=== PATIENT | female | born 1930 | race Caucasian/White ===

== ENCOUNTER 2018-02-19 10:53 | Day surgery (SDC) | payer MEDICARE ==
[~2018-02-19 10:53] MED LIST: ACETAMINOPHEN 325 MG TAB PO; CYCLOPENTOLATE 2% OPHTH SOLN 2ML BTL OD; PHENYLEPHRINE HCL 10 % OPHTH. SOL 5ML OD; PROPARACAINE 0.5% OPHTH SOL 15ML OD
[2018-02-19] MEDS: TROPICAMIDE 1% OPHTH SOLN 2ML OD (11:14)
[2018-02-19] MEDS: OFLOXACIN 0.3 % (OCUFLOX) OPTH SOL 5ML OD (11:14)
[2018-02-19] MEDS: LIDOCAINE 3.5 % 1ML OPHTH TOPICAL GEL OU (11:15)
[2018-02-19] MEDS: PHENYLEPHRINE 2.5% OPHTH SOL 2ML OD (11:15)
[2018-02-19] MEDS ORDERED: MIDAZOLAM INJ 2 MG/2 ML VIAL (J2250) As Ordered (11:57)
[2018-02-19] MEDS ORDERED: fentaNYL 100 MCG/2 ML INJECTION (J3010) As Ordered (11:57)
[2018-02-19] MEDS: BALANCED SALT IRRIGATION SOLUTION 500ML BAG (FOR OR EYE MACHINE) As Ordered (12:50)
[2018-02-19] MEDS: CEFUROXIME 1MG/0.1ML INTRACAMERAL INJ As Ordered (12:50)
[2018-02-19] MEDS: ACETYLCHOLINE OPHTH SOLN 1% 2ML (MIOCHOL-E) As Ordered (12:50)
[2018-02-19] MEDS: HEALON DUET (HEALON 10MG/ML 0.55ML & HEALON ENDOCOAT 30MG/ML 0.85ML) As Ordered (12:50)
[2018-02-19] MEDS: POVIDONE-IODINE 5% OPHTH PREP SOL 30ML As Ordered (12:50)
[2018-02-19] MEDS: LIDOCAINE 1% SDV 5 ML VIAL As Ordered (12:50)
[2018-02-19] MEDS ORDERED: TRIMETHOBENZAMIDE 300 MG CAP PO (13:30)
[2018-02-19] MEDS: AcetaZOLAMIDE 500 MG ER CAP PO (13:30)
[2018-02-19] MEDS ORDERED: KETOROLAC 0.5% OPHTH SOLN OD (13:30)
== END 2018-02-19 13:46 | disposition home or self-care (01) ==
LOC: M SDC 10:53
DX: H25.11 Age-related nuclear cataract, right eye (principal); I10 Essential (primary) hypertension; Z91.040 Latex allergy status; Z79.899 Other long term (current) drug therapy
CPT/HCPCS: 66984

== ENCOUNTER 2018-02-26 08:39 | Day surgery (SDC) | payer MEDICARE ==
[~2018-02-26 08:39] MED LIST changes: -CYCLOPENTOLATE 2% OPHTH SOLN 2ML BTL OD; -PHENYLEPHRINE HCL 10 % OPHTH. SOL 5ML OD; +PHENYLEPHRINE HCL 10 % OPHTH. SOL 5ML OS; -PROPARACAINE 0.5% OPHTH SOL 15ML OD; +PROPARACAINE 0.5% OPHTH SOL 15ML OS
[2018-02-26] MEDS: TROPICAMIDE 1% OPHTH SOLN 2ML OS (09:20)
[2018-02-26] MEDS: PHENYLEPHRINE 2.5% OPHTH SOL 2ML OS (09:20)
[2018-02-26] MEDS: LIDOCAINE 3.5 % 1ML OPHTH TOPICAL GEL OU (09:20)
[2018-02-26] MEDS: CYCLOPENTOLATE 2% OPHTH SOLN 2ML BTL OS (09:20)
[2018-02-26] MEDS: OFLOXACIN 0.3 % (OCUFLOX) OPTH SOL 5ML OS (09:20)
[2018-02-26] MEDS ORDERED: MIDAZOLAM INJ 2 MG/2 ML VIAL (J2250) As Ordered (09:52)
[2018-02-26] MEDS ORDERED: fentaNYL 100 MCG/2 ML INJECTION (J3010) As Ordered (09:52)
[2018-02-26] MEDS: KETOROLAC 0.5% OPHTH SOLN OS (10:00)
[2018-02-26] MEDS ORDERED: TRIMETHOBENZAMIDE 300 MG CAP PO (10:00)
[2018-02-26] MEDS: POVIDONE-IODINE 5% OPHTH PREP SOL 30ML As Ordered (10:56)
[2018-02-26] MEDS: LIDOCAINE 1% SDV 5 ML VIAL As Ordered (10:57)
[2018-02-26] MEDS: BALANCED SALT IRRIGATION SOLUTION 500ML BAG (FOR OR EYE MACHINE) As Ordered (10:57)
[2018-02-26] MEDS: HEALON DUET (HEALON 10MG/ML 0.55ML & HEALON ENDOCOAT 30MG/ML 0.85ML) As Ordered (10:57)
[2018-02-26] MEDS: CEFUROXIME 1MG/0.1ML INTRACAMERAL INJ As Ordered (10:57)
[2018-02-26] MEDS: AcetaZOLAMIDE 500 MG ER CAP PO (11:37)
[2018-02-26] MEDS ORDERED: ACETAMINOPHEN TAB 650MG DOSE (2X325MG) PO (11:45)
[2018-02-26] MEDS ORDERED: ONDANSETRON 4MG/2ML VIAL (J2405) IV (11:45)
== END 2018-02-26 11:50 | disposition home or self-care (01) ==
LOC: M SDC 08:39
DX: H25.12 Age-related nuclear cataract, left eye (principal); I12.9 Hypertensive chronic kidney disease with stage 1 through stage 4 chronic kidney disease, or unspecified chronic kidney disease; N18.3 Chronic kidney disease, stage 3 (moderate); E78.5 Hyperlipidemia, unspecified; R73.03 Prediabetes; R82.994 Hypercalciuria; M12.9 Arthropathy, unspecified; M54.2 Cervicalgia; R06.83 Snoring; Z79.899 Other long term (current) drug therapy; Z90.710 Acquired absence of both cervix and uterus; Z78.0 Asymptomatic menopausal state; Z96.643 Presence of artificial hip joint, bilateral
CPT/HCPCS: 66984